=== PATIENT | male | born 1940 | race Caucasian/White ===

== ENCOUNTER 2016-08-27 23:56 | Inpatient (IN) | payer MEDICARE, BC ==
[~2016-08-27] VITALS: Ht 175.3 cm; Wt 121.7 kg
[2016-08-27 23:58] VITALS: BP 117/55; PULSE 73; PULSE 82; RESP 20; TEMP 98.9; O2SAT 95
[2016-08-28] VITALS (47 sets, daily range): BP systolic 107–148; BP diastolic 53–71; PULSE 58–76; RESP 10–26; TEMP 97.4–98.7; O2SAT 93–99
[2016-08-28] MEDS ORDERED: METO50TA11 PO (01:04)
[2016-08-28] MEDS ORDERED: CHOL1CAP34 PO (01:04)
[2016-08-28] MEDS ORDERED: PANT40TA3 PO (01:04)
[2016-08-28] MEDS ORDERED: ALLO100T PO (01:04)
[2016-08-28] MEDS ORDERED: ISOS30TA3 PO (01:04)
[2016-08-28] MEDS ORDERED: CYAN1TAB24 (01:04)
[2016-08-28] MEDS ORDERED: HYDR-3801 PO (01:04)
[2016-08-28] MEDS ORDERED: LYRI225C PO (01:04)
[2016-08-28] MEDS ORDERED: AMLO5TAB2 PO (01:04)
[2016-08-28] MEDS ORDERED: FURO40TA PO (01:04)
[2016-08-28] MEDS ORDERED: GLIP5TAB8 PO (01:04)
[2016-08-28] MEDS ORDERED: PLAV75TA29 PO (01:04)
[2016-08-28] MEDS ORDERED: ASPI81CH CHEW (01:04)
[2016-08-28] MEDS ORDERED: SEVEL800 PO (01:04)
[2016-08-28] MEDS ORDERED: NITROGLYCERIN 2% OINT 1 GM PACKET TOP ONE (02:15)
[2016-08-28] MEDS ORDERED: SODIUM CHLORIDE 0.9% FLUSH 10 ML FLUSH IVF PRN (02:15)
--- NOTE | 2016-08-28 02:16 | PD ---
HPI Chief Complaint: Chest Pain Time Seen by Provider: 02:07 Travel History International Travel<30 days: No Contact w/Intl Traveler<30days: No Traveled to known affect area: No History of Present Illness HPI The patient is a 76-year-old male with a history of coronary artery disease who complains of 2 weeks of intermittent chest heaviness in the mid substernal region of his chest. He has been belching a lot for the past 2 days. Usually the episodes of chest discomfort last 5 minutes and are not associated with radiation of pain, nausea or diaphoresis. He states he does get short of breath the patient has had an aortic bovine valve replacement and standing in the past. He does have a guidance services coordinator in [place] where he is from but he has no local physician in this area. The patient is on both aspirin and Plavix. He states he took a baby aspirin this morning along with his Plavix and his gave him 2 extra 81 mg aspirins tonight when he complained of chest pain. He denies any syncopal or near syncopal spells. He states he had a nuclear stress test which was normal one month ago. The patient has a history of anemia and gets occasional blood transfusions for this. He takes iron pills any stools are black. He also takes Procrit shots. [facility] Past Medical History Tetanus Vaccination: Unknown Past Surgical History Cardiac Surgery: Yes (Stent, Valve replacement) Coronary Stent: Yes Social History Alcohol Use: No Tobacco Use: No Substance Use: No Allergies-Medications (Allergen,Severity, Reaction): Coded Allergies: No Known Allergies (Unverified , 08/28/16) Reported Meds & Prescriptions Reported Meds & Active Scripts Active Reported Isosorbide Mononitrate ER (Isosorbide Mononitrate) 30 Mg Marlys 30 Mg PO DAILY B12 (Cyanocobalamin) 1,000 Mcg Tab 1,000 Mg DAILY Pantoprazole (Pantoprazole Sodium) 40 Mg Tab 40 Mg PO DAILY Allopurinol 100 Mg Tab 100 Mg PO BID Renvela (Sevelamer Carbonate) 800 Mg Tab 800 Mg PO TID Hydralazine (Hydralazine HCl) 100 Mg Tab 100 Mg PO TID Take with meals Metoprolol Succinate ER 24 HR (Metoprolol Succinate) 50 Mg Tab 50 Mg PO DAILY Furosemide 40 Mg Tab 40 Mg PO TID Glipizide 5 Mg Tab 5 Mg PO BIDAC Take 30 minutes before a meal Amlodipine (Amlodipine Besylate) 5 Mg Tab 5 Mg PO DAILY Vitamin D3 (Cholecalciferol) 50,000 Unit Cap 50,000 Units PO Q7D Plavix (Clopidogrel Bisulfate) 75 Mg Tab 75 Mg PO DAILY Aspirin 81 Mg Chew 81 Mg CHEW DAILY Lyrica (Pregabalin) 225 Mg Cap 225 Mg PO DAILY Review of Systems Except as stated in HPI: all other systems reviewed are Neg Physical Exam Narrative GENERAL: The patient is obese, alert, oriented 3 in no apparent distress. His vital signs show blood pressure 117/55 but are otherwise normal. SKIN: Focused skin assessment warm/dry. HEAD: Atraumatic. Normocephalic. EYES: Pupils equal and round. No scleral icterus. No injection or drainage. ENT: No nasal bleeding or discharge. Mucous membranes pink and moist. NECK: Trachea midline. No JVD. CARDIOVASCULAR: Regular rate and rhythm. No murmur appreciated. RESPIRATORY: No accessory muscle use. Clear to auscultation. Breath sounds equal bilaterally. I cannot reproduce the patient's pain by pressing on the chest wall. GASTROINTESTINAL: Abdomen soft, non-tender, nondistended. Hepatic and splenic margins not palpable. MUSCULOSKELETAL: No obvious deformities. No clubbing. No cyanosis. No edema. NEUROLOGICAL: Awake and alert. No obvious cranial nerve deficits. Motor grossly within normal limits. Normal speech. PSYCHIATRIC: Appropriate mood and affect; insight and judgment normal. RECTAL EXAM: No masses or tenderness, stool is black and strongly guaiac positive. Data Data Last Documented VS Vital Signs Date Time Temp Pulse Resp B/P Pulse Ox O2 Delivery O2 Flow Rate FiO2 08/28/16 02:55 76 20 135/61 94 Room Air 08/27/16 23:58 98.9 Orders Electrocardiogram (08/28/16 02:07) Basic Metabolic Panel (Bmp) (08/28/16 02:07) Complete Blood Count With Diff (08/28/16 02:07) Comprehensive Metabolic Panel (08/28/16 02:07) Magnesium (Mg) (08/28/16 02:07) Troponin I (08/28/16 02:07) Ecg Monitoring (08/28/16 02:07) Bilateral Bp Monitoring (08/28/16 02:07) Iv Access Insert/Monitor (08/28/16 02:07) Oximetry (08/28/16 02:07) Oxygen Administration (08/28/16 02:07) Nitroglycerin 2% Oint (Nitroglycerin 2% (08/28/16 02:15) Sodium Chloride 0.9% Flush (Ns Flush) (08/28/16 02:15) Chest, Pa & Lat (08/28/16 02:07) Admit Order (Ed Use Only) (08/28/16 03:20) Labs Laboratory Tests Test 08/28/16 02:25 White Blood Count 3.5 TH/MM3 Red Blood Count 2.38 MIL/MM3 Hemoglobin 6.7 GM/DL Hematocrit 21.0 % Mean Corpuscular Volume 88.5 FL Mean Corpuscular Hemoglobin 28.4 PG Mean Corpuscular Hemoglobin 32.0 % Concent Red Cell Distribution Width 16.8 % Platelet Count 101 TH/MM3 Mean Platelet Volume 10.3 FL Neutrophils (%) (Auto) 76.6 % Lymphocytes (%) (Auto) 11.1 % Monocytes (%) (Auto) 7.5 % Eosinophils (%) (Auto) 4.2 % Basophils (%) (Auto) 0.6 % Neutrophils # (Auto) 2.7 TH/MM3 Lymphocytes # (Auto) 0.4 TH/MM3 Monocytes # (Auto) 0.3 TH/MM3 Eosinophils # (Auto) 0.1 TH/MM3 Basophils # (Auto) 0.0 TH/MM3 CBC Comment DIFF FINAL Differential Comment Sodium Level 148 MEQ/L Potassium Level 4.7 MEQ/L Chloride Level 114 MEQ/L Carbon Dioxide Level 24.2 MEQ/L Anion Gap 10 MEQ/L Blood Urea Nitrogen 92 MG/DL Creatinine 4.20 MG/DL Estimat Glomerular Filtration 14 ML/MIN Rate Random Glucose 166 MG/DL Calcium Level 7.7 MG/DL Magnesium Level 2.9 MG/DL Total Bilirubin 0.4 MG/DL Aspartate Amino Transf 24 U/L (AST/SGOT) Alanine Aminotransferase 35 U/L (ALT/SGPT) Alkaline Phosphatase 152 U/L Troponin I 0.42 NG/ML Total Protein 6.2 GM/DL Albumin 3.1 GM/DL [facility] Medical Decision Making Medical Screen Exam Complete: Yes Emergency Medical Condition: Yes Medical Record Reviewed: Yes Interpretation(s) EKG shows sinus rhythm with rate of 83 in no acute change and the EKG is normal. The CBC is normal, the hemoglobin is 6.7. The complete metabolic profile shows sodium 148, BUN 92, creatinine 4.2, troponin I 0.42 with magnesium 2.9 and calcium 7.7 and glucose 166 and total protein 6.2 and albumin 3.1. Differential Diagnosis Acute coronary syndrome, anemia, electrolyte disorder, chest wall pain, esophageal pain, pleuritic pain, pneumonia, gastrointestinal pain, GI bleeding, coagulopathy, renal insufficiency Narrative Course The patient has a significant anemia. He also has black, strongly guaiac positive stools. He does take iron pills and this likely is what turned the stool black. He also has an elevated troponin I. He also has renal insufficiency. It is possible that the anemia is contributing to some of the patient's chest pain. It is been approximately an hour now and the guidance services coordinator, Dr. Delgado has not answered our phone calls. Voicemails have been left. At 0526 Dr. Delgado callback and I told him he was consulted. [facility] service requested I consult him. Diagnosis Primary Impression: Chest pain Additional Impressions: Elevated troponin I level Anemia GI bleeding Renal insufficiency On anticoagulant therapy Admitting Information Admitting Physician Requests: Admit Puneet Galeano MD Aug 28, 2016 02:16
[2016-08-28 02:45] LABS: AUTOMATED NEUTROPHIL # 2.7 TH/MM3 (1.8-7.7); BASOPHIL % 0.6 % (0.0-2.0); EOSINOPHIL # 0.1 TH/MM3 (0-0.4); EOSINOPHIL % 4.2 % (0.0-4.0); LYMPH % 11.1 % (9.0-44.0); LYMPHOCYTE # 0.4 TH/MM3 (1.0-4.8); MEAN CELL VOLUME 88.5 FL (80.0-100.0); MEAN CORPUSCULAR HEMOGLOBIN 28.4 PG (27.0-34.0); MONO % 7.5 % (0.0-8.0); NEUT % 76.6 % (16.0-70.0); PLATELET COUNT 101 TH/MM3 (150-450); RED BLOOD COUNT 2.38 MIL/MM3 (4.50-5.90); RED CELL DISTRIBUTION WIDTH 16.8 % (11.6-17.2); WHITE BLOOD COUNT 3.5 TH/MM3 (4.0-11.0)
[2016-08-28 02:49] LABS: HEMO FLAGS DIFF FINAL
[2016-08-28 02:54] LABS: CHLORIDE 114 MEQ/L (98-107); POTASSIUM 4.7 MEQ/L (3.5-5.1); SODIUM (NA) 148 MEQ/L (136-145)
[2016-08-28 02:58] LABS: ANION GAP 10 MEQ/L (5-15); BICARBONATE 24.2 MEQ/L (21.0-32.0); BLOOD UREA NITROGEN 92 MG/DL (7-18); MAGNESIUM 2.9 MG/DL (1.5-2.5)
[2016-08-28 03:01] LABS: ALT (GPT) 35 U/L (12-78); AST (GOT) 24 U/L (15-37); GLOMERULAR FILTRATION RATE 14 ML/MIN (>89)
[2016-08-28 03:02] LABS: TOTAL BILIRUBIN ADULT 0.4 MG/DL (0.2-1.0)
[2016-08-28 03:04] LABS: ALKALINE PHOSPHATASE 152 U/L (45-117)
--- NOTE | 2016-08-28 03:16 | RADRPT ---
EXAM DATE/TIME: 08/28/2016 02:21 [facility] COMPARISON: No previous studies available for comparison. INDICATIONS : Chest pain. MEDICAL HISTORY : Hypertension. Diabetes mellitus type I. SURGICAL HISTORY : None. ENCOUNTER: Initial ACUITY: 1 day PAIN SCORE: 3/10 LOCATION: Bilateral chest FINDINGS: PA and lateral views of the chest demonstrate the lungs to be symmetrically aerated without evidence of mass, infiltrate or effusion. The cardiomediastinal contours are unremarkable. Both hemidiaphrag ms well delineated. Osseous structures are intact. Aortic valve cage. CONCLUSION: The lungs are clear. Aristeo Beltran MD on August 28, 2016 at 3:14 Board Certified Radiologist. This report was verified electronically.
[2016-08-28] MEDS ORDERED: NALOXONE HCL 0.4 MG/ML AMP IV PRN (03:45)
[2016-08-28] MEDS ORDERED: SODIUM CHLOR 0.9% 250 ML INJ 250 ML IV ONE (03:45)
[2016-08-28] MEDS ORDERED: SODIUM CHLORIDE 0.9% FLUSH 10 ML FLUSH IV FLUSH PRN (03:45)
[2016-08-28] MEDS ORDERED: FUROSEMIDE 20 MG/2 ML VIAL IV PUSH PRN (03:45)
[2016-08-28] MEDS ORDERED: PANTOPRAZOLE INJ 80 MG in SODIUM CHLORIDE 0.9% INJ 35 ML IV ONE (04:45)
[2016-08-28] MEDS: PANTOPRAZOLE INJ 80 MG in SODIUM CHLORIDE 0.9% INJ 100 ML IV SCH ×2 (04:55→07:00)
[2016-08-28] MEDS: SODIUM CHLORIDE 0.9% FLUSH 10 ML FLUSH IV FLUSH SCH ×2 (09:00→21:03)
[2016-08-28] MEDS ORDERED: DEXTROSE 50% IN WATER 50 ML VIAL(D50) IV PRN (12:15)
[2016-08-28] MEDS ORDERED: GLUCAGON 1 MG/ML VIAL OTHER PRN (12:15)
--- NOTE | 2016-08-28 12:23 | HHI.HP ---
[facility] Non-Staff Admission Diagnosis anemia, GI bleed, elevated troponin I Diagnoses: Chief Complaint: Chest pain and abdominal pain Travel History International Travel<30 Days: No Contact w/Intl Traveler <30 Da: No Traveled to Known Affected Are: No History of Present Illness This patient is a 76-year-old gentleman with a history of coronary artery disease and gastrointestinal symptoms. For the last 2 weeks he's had chest heaviness in the mid substernal area with associated belching and now with associated increased chest discomfort which lasted for about 1 day. Patient had increased shortness of breath with exertion. He does have a history of an aortic valve replacement and cardiac stent. For this he does take Plavix and aspirin. He also has chronic anemia and has been on Procrit and iron pills for this. His follow-up has been in [facility] where he lives. Patient has chronic black stools and noted no melena, hematemesis, hematochezia or ground patient's hemoglobin was 6.6 and the patient was admitted to the hospital. On my review his chest x-rays unremarkable and his EKG is without acute cardiac changes worrisome for ischemia. Patient does have chronic kidney disease and has a fistula in preparation for eventual dialysis. Of note his cardiac enzymes are elevated his troponin has trended high and the patient's chest pain has subsided. He did received 2 baby aspirins at home as well as Nitropaste and his pain appears to be resolved. Patient is currently chest pain -free. His Hemoccult was positive in the emergency room. Patient was admitted to the hospital for further evaluation of these complaints. Review of Systems Constitutional: COMPLAINS OF: Dizziness, DENIES: Diaphoretic episodes, Fatigue , Fever, Weight gain, Weight loss, Chills, Change in appetite, Night Sweats Endocrine: DENIES: Heat/cold intolerance, Polydipsia, Polyuria, Polyphagia Eyes: DENIES: Blurred vision, Diplopia, Eye inflammation, Eye pain, Vision loss , Photosensitivity, Double Vision Ears, nose, mouth, throat: DENIES: Tinnitus, Hearing loss, Vertigo, Nasal discharge, Oral lesions, Throat pain, Hoarseness, Ear Pain, Running Nose, Epistaxis, Sinus Pain, Toothache, Odynophagia Respiratory: DENIES: Apneas, Cough, Snoring, Wheezing, Hemoptysis, Sputum production, Shortness of breath Cardiovascular: COMPLAINS OF: Chest pain, Syncope, DENIES: Palpitations, Dyspnea on Exertion, PND, Lower Extremity Edema, Orthopnea, Claudication Gastrointestinal: COMPLAINS OF: Black stools (patient on iron), DENIES: Abdominal pain, Bloody stools, Constipation, Diarrhea, Nausea, Vomiting, Difficulty Swallowing, Anorexia Genitourinary: DENIES: Sexual dysfunction, Urinary frequency, Urinary incontinence, Urgency, Hematuria, Dysuria, Nocturia, Penile Discharge, Testicular Pain, Testicular Swelling Musculoskeletal: DENIES: Joint pain, Muscle aches, Stiffness, Joint Swelling, Back pain, Neck pain Integumentary: DENIES: Abnormal pigmentation, Nail changes, Pruritus, Rash Hematologic/lymphatic: DENIES: Bruising, Lymphadenopathy Immunologic/allergic: DENIES: Eczema, Urticaria Neurologic: DENIES: Abnormal gait, Headache, Localized weakness, Paresthesias, Seizures, Speech Problems, Tremor, Poor Balance Psychiatric: DENIES: Anxiety, Confusion, Mood changes, Depression, Hallucinations, Agitation, Suicidal Ideation, Homicidal Ideation, Delusions Past Family Social History Past Medical History Coronary artery disease status post stent, chronic kidney disease stage IV, hypertension, diabetes mellitus with diabetic neuropathy, tissue aortic valve Past Surgical History Right knee replacement Left arm fistula Cardiac stent Aortic tissue valve Appendectomy Reported Medications Reviewed in the medical record, no new medicines Allergies: Coded Allergies: No Known Allergies (Unverified , 08/28/16) Active Ordered Medications Reviewed in the medical record Family History Father at 86 from cardiac event Social History No tobacco or alcohol dependency, lives with his and is visiting from [facility] Physical Exam Vital Signs Vital Signs Date Time Temp Pulse Resp B/P Pulse Ox O2 Delivery O2 Flow Rate FiO2 08/28/16 09:29 62 11 140/66 08/28/16 09:24 66 13 140/65 08/28/16 09:19 97.6 70 17 137/65 08/28/16 09:14 66 15 133/64 08/28/16 09:04 97.5 66 16 140/61 08/28/16 09:00 70 08/28/16 08:59 70 16 138/63 08/28/16 08:54 97.4 70 17 140/65 08/28/16 08:50 97.7 66 15 137/63 96 08/28/16 08:46 97.7 66 19 137/63 08/28/16 08:45 66 17 08/28/16 08:00 68 08/28/16 07:00 68 08/28/16 07:00 98 Nasal Cannula 2.00 08/28/16 06:30 88 Nasal Cannula 2.00 08/28/16 06:00 72 08/28/16 05:35 98.7 70 16 136/64 95 08/28/16 05:30 70 16 95 08/28/16 04:25 70 18 143/67 93 Room Air 08/28/16 03:30 76 20 94 Room Air 08/28/16 02:55 76 20 135/61 94 Room Air 08/28/16 02:30 18 94 Room Air 08/27/16 23:58 73 20 95 Room Air 08/27/16 23:58 98.9 73 20 117/55 08/27/16 23:58 82 20 117/55 95 Physical Exam GENERAL: This is a well-nourished, well-developed patient, in no apparent distress. SKIN: No rashes, ecchymoses or lesions. Cool and dry. HEAD: Atraumatic. Normocephalic. No temporal or scalp tenderness. EYES: Pupils equal round and reactive. Extraocular motions intact. No scleral icterus. No injection or drainage. ENT: Nose without bleeding, purulent drainage or septal hematoma. Throat without erythema, tonsillar hypertrophy or exudate. Uvula midline. Airway patent. NECK: Trachea midline. No JVD or lymphadenopathy. Supple, nontender, no meningeal signs. CARDIOVASCULAR: Regular rate and rhythm without murmurs, gallops, or rubs. RESPIRATORY: Clear to auscultation. Breath sounds equal bilaterally. No wheezes , rales, or rhonchi. GASTROINTESTINAL: Abdomen soft, non-tender, nondistended. No hepato-splenomegaly , or palpable masses. No guarding. MUSCULOSKELETAL: Extremities without clubbing, cyanosis, or edema. No joint tenderness, effusion, or edema noted. No calf tenderness. Negative Homans sign bilaterally. NEUROLOGICAL: Awake and alert. Cranial nerves II through XII intact. Motor and sensory grossly within normal limits. Five out of 5 muscle strength in all muscle groups. Normal speech. Laboratory Laboratory Tests Test 08/28/16 08/28/16 08/28/16 08/28/16 02:25 03:49 04:00 08:30 White Blood Count 3.5 Red Blood Count 2.38 Hemoglobin 6.7 Hematocrit 21.0 Mean Corpuscular Volume 88.5 Mean Corpuscular Hemoglobin 28.4 Mean Corpuscular Hemoglobin 32.0 Concent Red Cell Distribution Width 16.8 Platelet Count 101 Mean Platelet Volume 10.3 Neutrophils (%) (Auto) 76.6 Lymphocytes (%) (Auto) 11.1 Monocytes (%) (Auto) 7.5 Eosinophils (%) (Auto) 4.2 Basophils (%) (Auto) 0.6 Neutrophils # (Auto) 2.7 Lymphocytes # (Auto) 0.4 Monocytes # (Auto) 0.3 Eosinophils # (Auto) 0.1 Basophils # (Auto) 0.0 CBC Comment DIFF FINAL Differential Comment Sodium Level 148 Potassium Level 4.7 Chloride Level 114 Carbon Dioxide Level 24.2 Anion Gap 10 Blood Urea Nitrogen 92 Creatinine 4.20 Estimat Glomerular Filtration 14 Rate Random Glucose 166 Calcium Level 7.7 Magnesium Level 2.9 Total Bilirubin 0.4 Aspartate Amino Transf 24 (AST/SGOT) Alanine Aminotransferase 35 (ALT/SGPT) Alkaline Phosphatase 152 Troponin I 0.42 1.87 Total Protein 6.2 Albumin 3.1 Blood Type O POSITIVE O POSITIVE Antibody Screen NEGATIVE Crossmatch Leukocyte-Reduced Red Blood Cells Blood Bank Comment Total Creatine Kinase 79 Result Diagram: 08/28/1622408/28/16224 Imaging Last Impressions Chest X-Ray 08/28/16206 Signed Impressions: Service Date/Time: July 02:21 - CONCLUSION: The lungs are clear. Aristeo Beltran MD Assessment and Plan Problem List: (1) Elevated troponin I level ICD Code: R74.8 Status: Acute Plan: Patient with atypical chest pain and troponins are elevated, patient with known coronary artery disease and stenting. Plavix and aspirin have been held due to probable GI bleeding Cardiac consultation appreciated, follow-up echo, continue telemetry, obtain old records Morphine, oxygen, nitroglycerin, (2) GI bleeding ICD Code: K92.2 Status: Acute Plan: Etiology unclear, GI follow-up pending Patient has had multiple evaluations but does not recall his hemoglobin this low. He notes no bleeding observed. He continues with Plavix and aspirin prior to admission and his gave him 2 extra aspirins at home Patient's anemia is symptomatic with syncopal symptoms Continue transfusion GI follow-up pending Patient will continue with proton pump inhibitor (3) Anemia ICD Code: D64.9 Status: Acute Plan: Status post blood transfusion of 2 units of packed red blood cells Continue to follow hemoglobin Chronic anemia with pedis evaluations which have been unfruitful. Patient has had occasional blood transfusions for this and does take iron pills. 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 In the case of services not specified as inpatient-only, they are appropriately provided as inpatient services in accordance with the 2-midnight benchmark. Estimated LOS (days): 4 4 days is the estimated time the patient will need to remain in the hospital, assuming treatment plan goals are met and no additional complications. Post-Hospital Plan: Home Jeane Ahumada MD Aug 28, 2016 12:23
--- NOTE | 2016-08-28 12:58 | MB ---
cc: JOSIAS TOLENTINO MD DATE OF CONSULTATION: 08/28/2016 REASON FOR CONSULTATION Elevated troponin. HISTORY OF PRESENT ILLNESS The patient is a very pleasant 76-year-old gentleman visiting from [place], who has a history of what sounds like a TAVR and preoperative cardiac catheterization performed about a year to a year and a half ago. The patient and his family are somewhat vague on the details of these procedures but apparently the cath did not show any significant blockages and he underwent TAVR thereafter. The patient has been following up in [place] and doing well until about a week ago when he began having worsening dyspnea on exertion. He also notes black stools. He is on aspirin and Plavix for his TAVR. Once in the emergency department he was found to have hemoglobin of 6.7 as well as elevated troponin and elevated creatinine and thus, I was consulted. The patient also admits to chest discomfort as well as shortness of breath when he is walking around, though he is feeling better now without any residual chest pain, shortness of breath, lightheadedness or dizziness. PAST MEDICAL HISTORY 1. Hypertension. 2. Diabetes. 3. Chronic kidney disease. 4. History of TAVR. (Unclear if the patient has coronary disease, the chart says he has a stent but again the patient and family are vague on these details). MEDICATIONS Home medications: 1. Lyrica 25 mg daily. 2. Allopurinol 100 mg daily. 3. Metoprolol succinate 50 mg daily. 4. Amlodipine 5 mg daily. 5. Hydralazine 100 mg t.i.d. 6. Lasix 40 mg t.i.d. 7. Imdur 30 mg daily. 8. Aspirin 81 mg daily. 9. Plavix 75 mg daily. 10. Protonix 40 mg daily. 11. Glipizide 5 mg b.i.d. ALLERGIES NO KNOWN DRUG ALLERGIES. PHYSICAL EXAMINATION VITAL SIGNS: Afebrile, pulse 62, respiratory rate 11, BP 140/66 sating 96 on room air. GENERAL: Pleasant obese gentleman in no distress. NECK: No JVD. LUNGS: Clear to auscultation bilaterally. CARDIOVASCULAR: Regular rate and rhythm. No significant murmurs appreciated. ABDOMEN: Benign. EXTREMITIES: No edema. LABORATORY DATA Sodium 148, potassium 4.7, chloride 115, bicarb 24.2, BUN 92, creatinine 4.2, glucose 166, troponin 0.42, 1.87. White count 3.5, hematocrit 21.0, hemoglobin 6.7, platelets 101. IMAGING STUDIES Chest x-ray shows no acute cardiopulmonary disease. EKG Shows sinus rhythm without any acute ST or T-wave changes. IMPRESSION 1. Elevated troponin. The patient had an elevated troponin in the setting of significant anemia and possible GI bleeding while on aspirin and Plavix. He also had chest discomfort but again this may be due to his anemia. He apparently had a relatively recent ischemic workup but it is unclear to me at this time whether he has a cardiac stent or not. I will attempt to get these records from his hospital in [place] as these will be very useful. If he did have a cardiac stent, at some point, it may be necessary to have him undergo some form of ischemic workup given his elevated troponin, such as, a nuclear stress test. This should be done once he is more stable from a bleeding standpoint. Complicating matters further is his significant kidney disease, as a cardiac catheterization would be very high risk given the associated dye use. Given the shortness of breath, I will also ask to get an echocardiogram to evaluate his TAVR, unless expeditious records showing a recent echo can be obtained. Further recommendations will be based on clinical course. Thank you again for the opportunity to participate in this patient's care. MD KERRY Ramirez/ALEXIA /11:57 AM /12:42 PM
[2016-08-28] MEDS: hydrALAZINE HCL 50 MG TAB PO SCH ×2 (13:57→21:05)
[2016-08-28] MEDS: METOPROLOL SUCCINATE 50 MG EXTENDED RELEASE TAB PO SCH (13:57)
[2016-08-28] MEDS: PREGABALIN 100 MG CAP PO SCH ×2 (14:41→21:05)
--- NOTE | 2016-08-28 14:46 | EKG ---
Date Performed: 08/28/2016 Time Performed: 14:20:31 PTAGE: 76 years EKG: Sinus rhythm PVC NO SIGNIFICANT CHANGE FROM PRIOR ELECTROCARDIOGRAM. PREVIOUS TRACING : 08/28/2016 08.40 DOCTOR: Gelacio Ramos Interpretating Date/Time 08/28/2016 14:46:02
--- NOTE | 2016-08-28 15:33 | PD.CONS ---
HPI Service Nephrology Consult Requested By Dr. Ahumada Reason for Consult Chronic kidney disease Primary Care Physician Non-Staff History of Present Illness Patient is a 76-year-old white male with history of chronic kidney disease approaching end-stage renal disease due to diabetic nephropathy from [place], history of diabetes, history of anemia, he has noticed some black stools and he states he came in because he felt like he has chest pressure and pain, his hemoglobin was 6.7, he is receiving blood transfusion he states he has a aortic valve replaced, in 2014 he had an AV fistula created in anticipation of dialysis however he is getting weekly Procrit shots and he has reported starting dialysis. He follows with his client resource specialist regularly. Review of Systems Constitutional: COMPLAINS OF: Fatigue Cardiovascular: COMPLAINS OF: Chest pain Musculoskeletal: COMPLAINS OF: Joint pain Psychiatric: COMPLAINS OF: Anxiety Past Family Social History Allergies: Coded Allergies: No Known Allergies (Unverified , 08/28/16) Past Medical History Coronary artery disease status post stent chronic kidney disease stage IV hypertension diabetes mellitus with diabetic neuropathy tissue aortic valve CANNON Liver disease Past Surgical History knee replacement Left arm AV fistula Cardiac stent Aortic tissue valve Appendectomy Reported Medications Reported Meds & Active Scripts Active Reported Isosorbide Mononitrate ER (Isosorbide Mononitrate) 30 Mg Marlys 30 Mg PO DAILY B12 (Cyanocobalamin) 1,000 Mcg Tab 1,000 Mg DAILY Pantoprazole (Pantoprazole Sodium) 40 Mg Tab 40 Mg PO DAILY Allopurinol 100 Mg Tab 100 Mg PO BID Renvela (Sevelamer Carbonate) 800 Mg Tab 800 Mg PO TID Hydralazine (Hydralazine HCl) 100 Mg Tab 100 Mg PO TID Take with meals Metoprolol Succinate ER 24 HR (Metoprolol Succinate) 50 Mg Tab 50 Mg PO DAILY Furosemide 40 Mg Tab 40 Mg PO TID Glipizide 5 Mg Tab 5 Mg PO BIDAC Take 30 minutes before a meal Amlodipine (Amlodipine Besylate) 5 Mg Tab 5 Mg PO DAILY Vitamin D3 (Cholecalciferol) 50,000 Unit Cap 50,000 Units PO Q7D Plavix (Clopidogrel Bisulfate) 75 Mg Tab 75 Mg PO DAILY Aspirin 81 Mg Chew 81 Mg CHEW DAILY Lyrica (Pregabalin) 225 Mg Cap 225 Mg PO DAILY Active Ordered Medications Current Medications Medications (Trade) Dose Ordered Sig/Bandar Route Start Time Stop Time Status Last Admin (NS Flush) 2 ml UNSCH PRN IV FLUSH 08/28/16 03:45 (NS Flush) 2 ml BID IV FLUSH 08/28/16 09:00 Naloxone HCl 0.4 mg 0.4 mg UNSCH PRN IV 08/28/16 03:45 Pantoprazole Sodium 80 mg/ Sodium Chloride 100 ml @ 10 mls/hr Q10H IV 08/28/16 04:45 08/28/16 07:00 (NS 250 ml Inj) 250 ml @ 15 mls/hr ONCE ONCE IV 08/28/16 03:45 08/28/16 20:24 08/28/16 08:30 (D50w (Vial) Inj) 50 ml UNSCH PRN IV 08/28/16 12:15 (Glucagon Inj) 1 mg UNSCH PRN OTHER 08/28/16 12:15 (Toprol Xl) 50 mg DAILY PO 08/28/16 12:30 08/28/16 13:57 (Apresoline) 100 mg Q8HR PO 08/28/16 14:00 08/28/16 13:57 (Lyrica) 100 mg Q12HR PO 08/28/16 13:00 08/28/16 14:41 (Renvela) 800 mg TIDAC PO 08/28/16 17:00 Family History Noncontributory Social History Denies smoking or alcohol use Physical Exam Vital Signs Vital Signs Date Time Temp Pulse Resp B/P Pulse Ox O2 Delivery O2 Flow Rate FiO2 08/28/16 09:29 62 11 140/66 08/28/16 09:24 66 13 140/65 08/28/16 09:19 97.6 70 17 137/65 08/28/16 09:14 66 15 133/64 08/28/16 09:04 97.5 66 16 140/61 08/28/16 09:00 70 08/28/16 08:59 70 16 138/63 08/28/16 08:54 97.4 70 17 140/65 08/28/16 08:50 97.7 66 15 137/63 96 08/28/16 08:46 97.7 66 19 137/63 08/28/16 08:45 66 17 08/28/16 08:00 68 08/28/16 07:00 68 08/28/16 07:00 98 Nasal Cannula 2.00 08/28/16 06:30 88 Nasal Cannula 2.00 08/28/16 06:00 72 08/28/16 05:35 98.7 70 16 136/64 95 08/28/16 05:30 70 16 95 08/28/16 04:25 70 18 143/67 93 Room Air 08/28/16 03:30 76 20 94 Room Air 08/28/16 02:55 76 20 135/61 94 Room Air 08/28/16 02:30 18 94 Room Air 08/27/16 23:58 73 20 95 Room Air 08/27/16 23:58 98.9 73 20 117/55 08/27/16 23:58 82 20 117/55 95 Physical Exam GENERAL: Well-nourished, well-developed obese patient. SKIN: Warm and dry. HEAD: Normocephalic. EYES: No scleral icterus. No injection or drainage. NECK: Supple, trachea midline. No JVD or lymphadenopathy. CARDIOVASCULAR: Regular rate and rhythm without murmurs, gallops, or rubs. RESPIRATORY: Breath sounds equal bilaterally. No accessory muscle use. GASTROINTESTINAL: Abdomen soft, non-tender, nondistended. EXTREMITIES: No cyanosis, or edema. AV fistula left forearm NEUROLOGICAL: Awake, alert, and oriented x 3. Non-focal. Laboratory Laboratory Tests Test 08/28/16 08/28/16 08/28/16 08/28/16 02:25 03:49 04:00 08:30 White Blood Count 3.5 Red Blood Count 2.38 Hemoglobin 6.7 Hematocrit 21.0 Mean Corpuscular Volume 88.5 Mean Corpuscular Hemoglobin 28.4 Mean Corpuscular Hemoglobin 32.0 Concent Red Cell Distribution Width 16.8 Platelet Count 101 Mean Platelet Volume 10.3 Neutrophils (%) (Auto) 76.6 Lymphocytes (%) (Auto) 11.1 Monocytes (%) (Auto) 7.5 Eosinophils (%) (Auto) 4.2 Basophils (%) (Auto) 0.6 Neutrophils # (Auto) 2.7 Lymphocytes # (Auto) 0.4 Monocytes # (Auto) 0.3 Eosinophils # (Auto) 0.1 Basophils # (Auto) 0.0 CBC Comment DIFF FINAL Differential Comment Sodium Level 148 Potassium Level 4.7 Chloride Level 114 Carbon Dioxide Level 24.2 Anion Gap 10 Blood Urea Nitrogen 92 Creatinine 4.20 Estimat Glomerular Filtration 14 Rate Random Glucose 166 Calcium Level 7.7 Magnesium Level 2.9 Total Bilirubin 0.4 Aspartate Amino Transf 24 (AST/SGOT) Alanine Aminotransferase 35 (ALT/SGPT) Alkaline Phosphatase 152 Troponin I 0.42 1.87 Total Protein 6.2 Albumin 3.1 Blood Type O POSITIVE O POSITIVE Antibody Screen NEGATIVE Crossmatch Leukocyte-Reduced Red Blood Cells Blood Bank Comment Total Creatine Kinase 79 Result Diagram: 08/28/1622408/28/16224 Imaging Last Impressions Chest X-Ray 08/28/16206 Signed Impressions: Service Date/Time: July 02:21 - CONCLUSION: The lungs are clear. Aristeo Beltran MD Assessment and Plan Problem List: (1) CKD (chronic kidney disease), stage V Plan: His GFR is 14 I told him he is getting near end-stage renal disease and check with nephrology in hometown I agree with blood transfusion I will give him Procrit 20,000 units in a.m. Discharge from nephrology point of view to follow-up (2) DM2 (diabetes mellitus, type 2) Plan: Monitor blood glucose (3) HTN (hypertension) Plan: Continue to monitor (4) GI bleeding Plan: Black stools GI consulted Shravan Hinojosa MD Aug 28, 2016 15:33
--- NOTE | 2016-08-28 15:34 | EKG ---
Date Performed: 08/28/2016 Time Performed: 08:40:06 PTAGE: 76 years EKG: Sinus rhythm WITH OCCASIONAL VENTRICULAR PREMATURE COMPLEXES BORDERLINE ECG PREVIOUS TRACING : 08/28/2016 00.08 DOCTOR: Sandro Almanzar Interpretating Date/Time 08/28/2016 15:33:20
--- NOTE | 2016-08-28 15:42 | EKG ---
Date Performed: 08/28/2016 Time Performed: 00:08:19 PTAGE: 76 years EKG: Sinus rhythm NORMAL ECG NO PREVIOUS TRACING DOCTOR: Sandro Almanzar Interpretating Date/Time 08/28/2016 15:40:40
[2016-08-28] MEDS ORDERED: ALPRAZolam 0.5 MG TAB PO PRN (15:45)
[2016-08-28] MEDS: INSULIN ASPART SUPPLEMENTAL SCALE SQ SCH ×2 (16:00→21:00)
[2016-08-28] MEDS: SEVELAMER CARBONATE 800 MG TAB PO SCH (17:00)
--- NOTE | 2016-08-28 18:23 | ECHRPT ---
Indication: Shortness of breath, S/P TAVR CONCLUSIONS The left ventricular systolic function is hyperdynamic with an estimated ejection fraction in the ra nge of 65- 70%. Moderate concentric left ventricular hypertrophy. The right ventricle is mildly dilated. [id number] mitral valve regurgitation. There is a TAVR in place as of the year 2014. There is trace aortic insufficiency. The TERE is 1.1 cm 2. The mean gradient is 18 mmHg. TAVR appears to be functioning appropriately. BP: 140 / 66 HR: 60 Rhythm: Sinus MEASUREMENTS (Male / Female) Normal Values Technical Quality:Technically difficult study 2D ECHO LV Diastolic Diameter PLAX 5.7 cm 4.2 - 5.9 / 3.9 - 5.3 cm LV Systolic Diameter PLAX 3.9 cm IVS Diastolic Thickness 1.4 cm 0.6 - 1.0 / 0.6 - 0.9 cm LVPW Diastolic Thickness 1.4 cm 0.6 - 1.0 / 0.6 - 0.9 cm LV Relative Wall Thickness 0.5 LVOT Diameter 2.1 cm Aortic Root Diameter 3.0 cm LA Systolic Diameter LX 4.5 cm 3.0 - 4.0 / 2.7 - 3.8 cm DOPPLER AV Peak Velocity 288.7 cm/s AV Peak Gradient 33.3 mmHg AV Mean Gradient 17.7 mmHg AV Velocity Time Integral 75.2 cm LVOT Peak Velocity 90.5 cm/s LVOT Peak Gradient 3.3 mmHg LVOT Velocity Time Integral 23.8 cm LVOT Cardiac Index 1997.2 cm/minm AV Area Cont Eq vti 1.1 cm AV Area Cont Eq pk 1.1 cm Mitral E Point Velocity 125.0 cm/s Mitral A Point Velocity 90.5 cm/s Mitral E to A Ratio 1.4 LV E' Lateral Velocity 9.7 cm/s Mitral E to LV E' Lateral Ratio 13.0 LV E' Septal Velocity 7.6 cm/s Mitral E to LV E' Septal Ratio 16.4 PV Peak Velocity 58.7 cm/s PV Peak Gradient 1.4 mmHg FINDINGS LEFT VENTRICLE Normal left ventricular size. Moderate concentric left ventricular hypertrophy. The left ventricular systolic function is hyperdynamic with an estimated ejection fraction in the ra nge of 65- 70%. No regional wall motion abnormalities are present. RIGHT VENTRICLE The right ventricular systoilc function is normal. The right ventricle is mildly dilated. LEFT ATRIUM The left atrial size is mildly dilated. RIGHT ATRIUM The right atrial size is mildly dilated. ATRIAL SEPTUM The interatrial septum not well visualized. AORTA The aortic root and proximal ascending aorta are not well visualized MITRAL VALVE Structurally normal mitral valve. Bjhk-eo-foiveqvy mitral valve regurgitation. AORTIC VALVE There is a TAVR in place as of the year 2014. There is trace aortic insufficiency. The TERE is 1.1 cm 2. The mean gradient is 18 mmHg. TAVR appears to be functioning appropriately. TRICUSPID VALVE The tricuspid valve is not well visualized. VESSELS The inferior vena cava is normal in size. There is greater than 50% respiratory change in dimension of the inferior vena cava (normal). PERICARDIUM No pericardial effusion. Francisco José DO (Electronically Signed) Final Date:28 August 2016 18:21
--- NOTE | 2016-08-28 19:55 | MB ---
cc: AMI AHUMADA MD, BEATRICE S. M.D. DATE OF CONSULTATION: 08/28/[address] Ahumada. REASON FOR CONSULTATION Anemia, questionable GI bleed. HISTORY OF PRESENT ILLNESS Ms. Longoria is a 76-year-old gentleman who is visiting here from [place], [place] along with his family. The patient was admitted to the hospital for increased chest heaviness and increased belching and was found to have anemia and guaiac-positive stool. The patient has chronic anemia for the last one year. He had extensive investigations. He had endoscopy, colonoscopy and capsule endoscopy and according to the family everything was normal. Most recently he had an abdominal ultrasound to evaluate his liver and according to the that may have been normal. The patient is also followed by Nephrology for chronic renal disease. He is taking Procrit on a regular basis and also iron pills. He has chronic dark stool and he is taking iron on a regular basis. He is currently sleeping. According to the , there is no history of nausea, vomiting, constipation, diarrhea, abdominal pain. He does have increased sleepiness during the day. The patient had a Procrit injection prior to his arrival in the area that was a week ago and at that time his hemoglobin was 8.5. No records are available. PAST MEDICAL HISTORY 1. Coronary artery disease status post stent. 2. Chronic kidney disease. 3. Hypertension. 4. Diabetes with diabetic neuropathy. 5. Tissue aortic valve. 6. Chronic anemia. 7. Morbidly obese. PAST SURGICAL HISTORY 1. Right knee replacement. 2. Left arm fistula. 3. Cardiac stent. 4. Aortic tissue valve. 5. Appendectomy. ALLERGIES NO KNOWN ALLERGIES. SOCIAL HISTORY There is no history of smoking, drinking or drug use. MEDICATIONS His medications at home - 1. Allopurinol. 2. Amlodipine. 3. Aspirin. 4. Cholecalciferol. 5. Plavix. 6. Vitamin B12. 7. Lasix. 8. Glipizide. 9. Hydralazine. 10. Isosorbide. 11. Metoprolol. 12. Protonix. 13. . 14. Renvela. In the hospital, the patient was placed on - 1. Xanax. 2. Epogen. 3. Glucagon. 4. Hydralazine. 5. Insulin. 6. Metoprolol. 7. Naloxone. 8. Protonix. 9. Lyrica. 10. Renvela. 11. Sodium IV fluids. REVIEW OF SYSTEMS Unfortunately, I cannot perform properly as the patient is sleepy and cannot converse. PHYSICAL EXAMINATION GENERAL: On clinical examination, he is sitting in bed, morbidly obese, sleeping. VITAL SIGNS: Blood pressure 140/66, respiration rate is 16, pulse 62. HEAD, EYES, EARS, NOSE AND THROAT: PERRLA. Mild pallor. NECK: No JVD. No lymphadenopathy. CHEST: Clear to auscultation and palpitation. CARDIOVASCULAR: S1, S2. No murmur. ABDOMEN: Morbidly obese. Bowel sounds are present. UMBRELLA FRAME MAKER: He is arousable but very sleepy, he was just given Xanax. LABORATORY DATA His hemoglobin on admission 6.7, white count is 3.5, platelets 101. Chemistry: BUN 92, creatinine 4.2, glucose 166, troponin 2.36 and going up, AST normal. IMAGING Chest x-ray was normal. IMPRESSION Symptomatic anemia. Apparently the patient has chronic anemia for which he is followed with Nephrology and getting Procrit and iron supplementation. He had extensive GI workup as per the family for similar reasons. No indication of active bleed at this time. RECOMMENDATIONS 1. Continue Protonix. 2. Monitor H&H closely. 3. Obtain records from [place]. 4. If the patient's hemoglobin continues to drop consider endoscopy, but the patient will need to be cleared by Cardiology for the procedure. 5. Supportive care. 6. Consider bleeding scan if the patient continues to have black stools and drop in hemoglobin and unstable for endoscopy. I would like to thank Dr. Ahumada for referring him to our office for consultation. The findings were discussed with the family and patient. MD BRENDA DyerB/MATT /6:52 PM /7:14 PM
[2016-08-29] VITALS: BP 142/67; PULSE 58; RESP 10; TEMP 97.6; O2SAT 91
[2016-08-29] MEDS: PANTOPRAZOLE INJ 80 MG in SODIUM CHLORIDE 0.9% INJ 100 ML IV SCH ×2 (03:48→11:39)
[2016-08-29 04:00] VITALS: BP 120/65; PULSE 56; RESP 10; TEMP 97.6; O2SAT 96
[2016-08-29 06:02] LABS: AUTOMATED NEUTROPHIL # 2.1 TH/MM3 (1.8-7.7); BASOPHIL % 0.2 % (0.0-2.0); EOSINOPHIL # 0.2 TH/MM3 (0-0.4); EOSINOPHIL % 6.2 % (0.0-4.0); HEMATOCRIT 24.5 % (39.0-51.0); LYMPH % 16.1 % (9.0-44.0); LYMPHOCYTE # 0.5 TH/MM3 (1.0-4.8); MEAN CELL VOLUME 88.8 FL (80.0-100.0); MEAN CORPUSCULAR HEMOGLOBIN 28.3 PG (27.0-34.0); MEAN CORPUSCULAR HGB CONC 31.9 % (32.0-36.0); MONO % 11.5 % (0.0-8.0); PLATELET COUNT 94 TH/MM3 (150-450); RED BLOOD COUNT 2.76 MIL/MM3 (4.50-5.90); RED CELL DISTRIBUTION WIDTH 16.3 % (11.6-17.2); WHITE BLOOD COUNT 3.2 TH/MM3 (4.0-11.0)
[2016-08-29 06:03] LABS: HEMO FLAGS DIFF FINAL
[2016-08-29 06:10] LABS: POTASSIUM 4.4 MEQ/L (3.5-5.1)
[2016-08-29 06:14] LABS: BICARBONATE 24.7 MEQ/L (21.0-32.0)
[2016-08-29] MEDS: hydrALAZINE HCL 50 MG TAB PO SCH ×2 (06:31→14:00)
[2016-08-29] MEDS: INSULIN ASPART SUPPLEMENTAL SCALE SQ SCH ×3 (06:31→16:00)
[2016-08-29 08:00] VITALS: BP 137/59; PULSE 62; RESP 15; TEMP 97.8
[2016-08-29] MEDS ORDERED: EPOETIN ALFA 20,000 UNITS/ML VIAL SQ ONE (08:00)
[2016-08-29] MEDS: PREGABALIN 100 MG CAP PO SCH (09:10)
[2016-08-29] MEDS: SEVELAMER CARBONATE 800 MG TAB PO SCH ×3 (09:10→17:28)
[2016-08-29] MEDS: METOPROLOL SUCCINATE 50 MG EXTENDED RELEASE TAB PO SCH (09:11)
[2016-08-29] MEDS: SODIUM CHLORIDE 0.9% FLUSH 10 ML FLUSH IV FLUSH SCH (09:12)
--- NOTE | 2016-08-29 10:27 | HHI.PR ---
Subjective Remarks Patient seen today and evaluated in follow-up for anemia and elevated troponins with atypical chest discomfort. Old records reviewed from [place] this morning. Discussed with patient and spouse and FACING SLITTER Patient without pain complaint today, no bleeding noted, hemoglobin improved to 7.8 after 2 units of packed red blood cells yesterday Patient out of bed to chair without difficulty and requesting to be discharged to [place] Objective Vitals Vital Signs Date Time Temp Pulse Resp B/P Pulse Ox O2 Delivery O2 Flow Rate FiO2 08/29/16 08:00 62 08/29/16 08:00 97.8 62 15 137/59 08/29/16 07:00 96 Nasal Cannula 2.00 08/29/16 04:00 97.6 56 10 120/65 96 08/29/16 04:00 56 08/29/16 00:00 58 08/29/16 00:00 97.6 58 10 142/67 91 08/28/16 20:00 95 Nasal Cannula 2.00 08/28/16 20:00 97.5 62 14 133/56 99 08/28/16 20:00 65 08/28/16 17:45 62 08/28/16 17:45 62 15 142/68 96 08/28/16 17:15 70 08/28/16 17:15 70 23 134/71 96 08/28/16 17:00 70 17 94 08/28/16 16:45 64 14 129/58 93 08/28/16 16:45 64 08/28/16 16:15 98.3 68 14 107/63 96 08/28/16 16:15 68 08/28/16 15:45 58 08/28/16 15:45 58 12 145/69 95 08/28/16 15:15 64 10 147/66 93 08/28/16 15:15 64 08/28/16 15:00 60 12 94 08/28/16 14:45 62 08/28/16 14:45 62 14 133/66 97 08/28/16 14:15 64 13 122/68 08/28/16 14:15 64 08/28/16 13:45 60 08/28/16 13:45 60 10 127/60 08/28/16 13:00 60 11 08/28/16 12:45 66 08/28/16 12:15 62 08/28/16 12:15 98.5 62 10 128/63 08/28/16 11:45 64 15 132/62 08/28/16 11:45 64 08/28/16 11:15 60 08/28/16 11:15 60 15 126/65 08/28/16 11:00 64 14 99 08/28/16 11:00 68 08/28/16 10:45 62 I/O 08/28/16 08/28/16 08/28/16 08/29/16 08/29/16 08/29/16 07:00 15:00 23:00 07:00 15:00 23:00 Intake Total 699 ml 556 ml Output Total 500 ml Balance 699 ml 56 ml Intake Oral 0 ml 480 ml IV Total 699 ml 76 ml Output Urine Total 500 ml # Voids 2 # Bowel Movements 0 Result Diagram: 08/29/16 0406 08/29/16 0406 Imaging Last Impressions Chest X-Ray 08/28/16 0207 Signed Impressions: Service Date/Time: July 02:21 - CONCLUSION: The lungs are clear. Aristeo Beltran MD Objective Remarks GENERAL: This is a well-nourished, well-developed patient, in no apparent distress. CARDIOVASCULAR: Regular rate and rhythm without murmurs, gallops, or rubs. RESPIRATORY: Clear to auscultation. Breath sounds equal bilaterally. No wheezes , rales, or rhonchi. GASTROINTESTINAL: Abdomen soft, non-tender, nondistended. Normal active bowel sounds MUSCULOSKELETAL: Extremities without clubbing, cyanosis, or edema. NEURO: Alert & Oriented x4 to person, place, time, situation. Moves all ext x4 A/P Problem List: (1) Elevated troponin I level ICD Code: R74.8 Status: Acute Plan: Patient with resolution of atypical chest pain and troponins are trending down, patient with known coronary artery disease and stenting. Records are received from [place] which do show cardiac catheterization 06/2014 with mid LAD stenosis 95% status post bare metal stenting and prescribe aspirin and Plavix EF 55% on last echocardiogram completed in March Currently Plavix and aspirin have been held due to probable GI bleeding Cardiac consultation appreciated, Follow-up echo completed yesterday shows preserved ejection fraction, continue telemetry, Morphine, oxygen, nitroglycerin, (2) GI bleeding ICD Code: K92.2 Status: Acute Plan: GI follow-up appreciated 06/2015 endoscopy records obtained from [place]: EGD showed varices with angiodysplasia, colonoscopy was unremarkable, outpatient capsule endoscopy showed small dysplasia, hemoglobin prior to that was 5.5 Continue transfusion for today's hemoglobin of 7.8 with goal of hemoglobin greater than 8 due to cardiac disease Patient will continue with proton pump inhibitor (3) Anemia ICD Code: D64.9 Status: Acute Plan: Chronic and multifactorial due to iron deficiency, chronic anemia of renal disease and acute GI bleed Continue with plans for third unit of transfusion today Repeat an a.m. (4) CKD (chronic kidney disease) stage 4, GFR 15-29 ml/min ICD Code: N18.4 Status: Acute Plan: with recent fistula for possible CUMULATIVE EFFECTS ANALYST in the future avoid nephrotoxic injury Follow continue renvela renal consult appreciated, patient currently evaluated for possible transplant (5) DM2 (diabetes mellitus, type 2) ICD Code: E11.9 Status: Acute Plan: With neuropathy continue ADA diet v clears, insulin ssi, hold glipizide accucheck (6) HTN (hypertension) ICD Code: I10 Status: Acute Plan: Currently controlled on home medications Assessment and Plan We'll continue with medical management of anemia. Family would like to pursue any further interventions in [place]. Given patient's renal disease and recent cardiac catheterization done in [place] this may be most advisable Patient will need to follow-up with his primary facility maintenance worker as well as his primary decorative greens cutter Jeane Ahumada MD Aug 29, 2016 10:26
[2016-08-29] MEDS ORDERED: diphenhydrAMINE HCL 25 MG CAP PO PRN (10:30)
[2016-08-29] MEDS ORDERED: FUROSEMIDE 20 MG/2 ML VIAL IV PRN (10:30)
[2016-08-29] MEDS ORDERED: SODIUM CHLOR 0.9% 250 ML INJ 250 ML IV ONE (10:30)
[2016-08-29 11:45] VITALS: BP 136/68; PULSE 55; RESP 12; TEMP 98.8; O2SAT 96
[2016-08-29 12:00] VITALS: BP 151/70; PULSE 50; RESP 9; TEMP 97.9; O2SAT 97
--- NOTE | 2016-08-29 13:05 | PD.CARD.PN ---
Subjective Subjective Remarks The chart was reviewed. The patient denies chest pain, shortness of breath, GI symptoms or bleeding. Telemetry reveals sinus rhythm. Objective Medications Reviewed Vital Signs / I&O Vital Signs Date Time Temp Pulse Resp B/P Pulse Ox O2 Delivery O2 Flow Rate FiO2 08/29/16 12:00 50 08/29/16 12:00 97.9 50 9 151/70 97 08/29/16 11:45 98.8 55 12 136/68 96 08/29/16 10:10 12 08/29/16 08:00 62 08/29/16 08:00 97.8 62 15 137/59 08/29/16 07:00 96 Nasal Cannula 2.00 08/29/16 04:00 97.6 56 10 120/65 96 08/29/16 04:00 56 08/29/16 00:00 58 08/29/16 00:00 97.6 58 10 142/67 91 08/28/16 20:00 95 Nasal Cannula 2.00 08/28/16 20:00 97.5 62 14 133/56 99 08/28/16 20:00 65 08/28/16 17:45 62 08/28/16 17:45 62 15 142/68 96 08/28/16 17:15 70 08/28/16 17:15 70 23 134/71 96 08/28/16 17:00 70 17 94 08/28/16 16:45 64 14 129/58 93 08/28/16 16:45 64 08/28/16 16:15 98.3 68 14 107/63 96 08/28/16 16:15 68 08/28/16 15:45 58 08/28/16 15:45 58 12 145/69 95 08/28/16 15:15 64 10 147/66 93 08/28/16 15:15 64 08/28/16 15:00 60 12 94 08/28/16 14:45 62 08/28/16 14:45 62 14 133/66 97 08/28/16 14:15 64 13 122/68 08/28/16 14:15 64 08/28/16 13:45 60 08/28/16 13:45 60 10 127/60 I/O 08/28/16 08/28/16 08/28/16 08/29/16 08/29/16 08/29/16 07:00 15:00 23:00 07:00 15:00 23:00 Intake Total 699 ml 556 ml Output Total 500 ml Balance 699 ml 56 ml Intake Oral 0 ml 480 ml IV Total 699 ml 76 ml Output Urine Total 500 ml # Voids 2 # Bowel Movements 0 Physical Exam GENERAL: Overweight patient in no apparent distress. SKIN: Warm and dry. NECK: JVD normal - less than or equal to 5 cm H20. CARDIOVASCULAR: Regular rate and rhythm without gallops, or rubs. 1/6 early peaking systolic ejection murmur at the base. RESPIRATORY: Normal breath sounds - equal bilaterally. No accessory muscle use. No wheezes, rales or rubs. PERIPHERY: No cyanosis. Trace edema. Laboratory Laboratory Tests Test 08/28/16 08/28/16 08/29/16 14:10 21:05 04:06 Total Creatine Kinase 80 U/L Troponin I 2.36 NG/ML 1.73 NG/ML White Blood Count 3.2 TH/MM3 Red Blood Count 2.76 MIL/MM3 Hemoglobin 7.8 GM/DL Hematocrit 24.5 % Mean Corpuscular Volume 88.8 FL Mean Corpuscular Hemoglobin 28.3 PG Mean Corpuscular Hemoglobin 31.9 % Concent Red Cell Distribution Width 16.3 % Platelet Count 94 TH/MM3 Mean Platelet Volume 10.8 FL Neutrophils (%) (Auto) 66.0 % Lymphocytes (%) (Auto) 16.1 % Monocytes (%) (Auto) 11.5 % Eosinophils (%) (Auto) 6.2 % Basophils (%) (Auto) 0.2 % Neutrophils # (Auto) 2.1 TH/MM3 Lymphocytes # (Auto) 0.5 TH/MM3 Monocytes # (Auto) 0.4 TH/MM3 Eosinophils # (Auto) 0.2 TH/MM3 Basophils # (Auto) 0.0 TH/MM3 CBC Comment DIFF FINAL Differential Comment Sodium Level 150 MEQ/L Potassium Level 4.4 MEQ/L Chloride Level 115 MEQ/L Carbon Dioxide Level 24.7 MEQ/L Anion Gap 10 MEQ/L Blood Urea Nitrogen 80 MG/DL Creatinine 3.90 MG/DL Estimat Glomerular Filtration 15 ML/MIN Rate Random Glucose 110 MG/DL Calcium Level 7.8 MG/DL Imaging Last 48 hours Impressions Chest X-Ray 08/28/16 0206 Signed Impressions: Service Date/Time: July 02:21 - CONCLUSION: The lungs are clear. Aristeo Beltran MD Assessment and Plan Assessment and Plan Problems: #1 severe anemia with probable GI bleed #2 non-ST elevation AR #3 history of bare metal stent to the mid LAD 2014 #4 TAVR 2014 #5 chronic kidney disease stage IV #6 hypertension/hyperlipidemia Recommendations: Anemia workup per primary service Low-cholesterol/salt/diabetic diet DVT prophylaxis Ideally the patient should be on a baby aspirin per day given his coronary disease. Additionally he should be on high-dose statin therapy. Endocarditis prophylaxis. I will sign off and we will be available if needed. Gelacio Ramos MD Aug 29, 2016 13:05
--- NOTE | 2016-08-29 13:56 | HHI.NPPN ---
Subjective History of Present Illness hx of ckd stage 4 DM, Anemia s/p PRBC Objective Data Data 08/28/16 08/29/16 18:59 06:59 Intake Total 699 ml 556 ml Output Total 500 ml Balance 699 ml 56 ml Intake Oral 0 ml 480 ml IV Total 699 ml 76 ml Output Urine Total 500 ml # Voids 2 # Bowel Movements 0 Vital Signs Date Time Temp Pulse Resp B/P Pulse Ox O2 Delivery O2 Flow Rate FiO2 08/29/16 12:00 50 08/29/16 12:00 97.9 50 9 151/70 97 08/29/16 11:45 98.8 55 12 136/68 96 08/29/16 10:10 12 08/29/16 08:00 62 08/29/16 08:00 97.8 62 15 137/59 08/29/16 07:00 96 Nasal Cannula 2.00 08/29/16 04:00 97.6 56 10 120/65 96 08/29/16 04:00 56 08/29/16 00:00 58 08/29/16 00:00 97.6 58 10 142/67 91 08/28/16 20:00 95 Nasal Cannula 2.00 08/28/16 20:00 97.5 62 14 133/56 99 08/28/16 20:00 65 08/28/16 17:45 62 08/28/16 17:45 62 15 142/68 96 08/28/16 17:15 70 08/28/16 17:15 70 23 134/71 96 08/28/16 17:00 70 17 94 08/28/16 16:45 64 14 129/58 93 08/28/16 16:45 64 08/28/16 16:15 98.3 68 14 107/63 96 08/28/16 16:15 68 08/28/16 15:45 58 08/28/16 15:45 58 12 145/69 95 08/28/16 15:15 64 10 147/66 93 08/28/16 15:15 64 08/28/16 15:00 60 12 94 08/28/16 14:45 62 08/28/16 14:45 62 14 133/66 97 08/28/16 14:15 64 13 122/68 08/28/16 14:15 64 -: 08/29/16 0406 08/29/16 0406 Physical Exam General Appearance: Well Developed, Well Nourished Neck Neck Exam: Neck Supple Pulmonary Resp Exam: Clear Bilaterally Cardiology CV Exam: Regular, Normal Sinus Rhythm Extremeties Extremities Exam: Trace Edema Extremeties Remarks AVF left Assessment/Plan Problem List: (1) CKD (chronic kidney disease), stage V Plan: His GFR is 15 FU with nephrology in [place] he had PRBC given him Procrit 20,000 units in a.m. Discharge from nephrology point of view to follow-up (2) DM2 (diabetes mellitus, type 2) Plan: Monitor blood glucose (3) HTN (hypertension) Plan: Continue to monitor (4) GI bleeding Plan: Black stools GI consulted Shravan Hinojosa MD Aug 29, 2016 13:56 Shravan Hinojosa MD Aug 29, 2016 13:56
--- NOTE | 2016-08-29 13:58 | HHI.DCPOC ---
Discharge Care Plan Diagnosis: (1) NSTEMI (non-ST elevated myocardial infarction) (2) CKD (chronic kidney disease), stage V (3) DM2 (diabetes mellitus, type 2) (4) HTN (hypertension) (5) GI bleeding Goals to Promote Your Health * To prevent worsening of your condition and complications * To maintain your health at the optimal level Directions to Meet Your Goals Take your medications as prescribed Follow your dietary instruction Follow activity as directed Keep your appointments as scheduled Take your immunizations and boosters as scheduled If your symptoms worsen call your PCP, if no PCP go to Urgent Care Center or Emergency Room Smoking is Dangerous to Your Health. Avoid second hand smoke Call the 24-hour hour crisis hotline for domestic abuse at Jeane Ahumada MD Aug 29, 2016 13:58
[2016-08-29 16:00] VITALS: BP 137/60; PULSE 54; RESP 16; TEMP 97.8; O2SAT 96
[2016-08-29 17:10] LABS: HEMATOCRIT 26.5 % (39.0-51.0)
[2016-08-29 17:43] LABS: REVIEW FLAG FINAL
== END 2016-08-29 19:05 | disposition home or self-care (01) | DRG 811 ==
LOC: PHED 23:56 → PHEDA 08-28 03:23 → PHICU 08-28 05:25
PROVIDERS: ADMIT Hospitalist; ATTEND Hospitalist
PROC: 30233N1 Transfusion of Nonautologous Red Blood Cells into Peripheral Vein, Percutaneous Approach (ICD-10-PCS; principal; 2016-08-28)
DX: D64.9 Anemia, unspecified (principal); I21.4 Non-ST elevation (NSTEMI) myocardial infarction; I12.0 Hypertensive chronic kidney disease with stage 5 chronic kidney disease or end stage renal disease; N18.5 Chronic kidney disease, stage 5; E11.22 Type 2 diabetes mellitus with diabetic chronic kidney disease; Z95.5 Presence of coronary angioplasty implant and graft; Z79.84 Long term (current) use of oral hypoglycemic drugs; Z79.02 Long term (current) use of antithrombotics/antiplatelets; Z79.82 Long term (current) use of aspirin; E11.40 Type 2 diabetes mellitus with diabetic neuropathy, unspecified; I25.10 Atherosclerotic heart disease of native coronary artery without angina pectoris; Z95.2 Presence of prosthetic heart valve; E66.9 Obesity, unspecified; Z68.39 Body mass index [BMI] 39.0-39.9, adult; E78.5 Hyperlipidemia, unspecified; Z96.651 Presence of right artificial knee joint
CPT/HCPCS: 36430; 71020; 80048; 80053; 82550; 82948; 83735; 84484; 85014; 85018; 85025; 86850; 86900; 86901; 86920; 93005; 93306; C9113; J1815; J1940; J7050; P9016; Q4081